=== PATIENT | female | born 1975 | race Caucasian/White ===

== ENCOUNTER 2017-10-01 20:16 | Emergency (ER) | payer OTHER ==
[~2017-10-01] VITALS: Ht 175.3 cm; Wt 149.2 kg
[~2017-10-01 20:16] MED LIST: AMLODIPINE BESYL5 MG PO; BENTYL20 MG PO; BUPROPION HCL150 M2 PO; CIPRO250 MG PO; ESCITALOPRAM OX20 MG PO; IBUPROFEN400 MG PO; INDERAL40 MG PO; LEVOTHYROXINE25 MCG PO; METFORMIN HCL500 MG PO; TOPIRAMATE50 MG PO; ZOFRAN ODT4 MG PO
[2017-10-01 23:59] LABS: APPEARANCE SL.HAZY ((CLEAR)); BILIRUBIN NEGATIVE; BLOOD MODERATE; COLOR YELLOW ((YELLOW)); GLUCOSE (STRIP) NEGATIVE; KETONES NEGATIVE; LEUKOCYTES MODERATE; NITRITE NEGATIVE; PROTEIN (STRIP) 30; SPECIFIC GRAVITY 1.016 (1.000-1.030); UROBILINOGEN 0.2 MG/DL (0.2-1.0)
[2017-10-02 00:10] LABS: BACTERIA 2+ /HPF; EPITHELIAL CELLS 2+ /HPF; MUCUS 2+ /LPF; RED BLOOD CELLS 0-5 /HPF (0-5); WHITE BLOOD CELLS 40-50 /HPF (0-5)
[2017-10-02] MEDS ORDERED: NAPROSYN500 MG PO (01:49)
[2017-10-02] MEDS ORDERED: FIORICET 50-301 EAC1 PO (01:49)
[2017-10-02] MEDS ORDERED: REGLAN10 MG PO (01:49)
[2017-10-02 02:04] VITALS: BP 127/58
== END 2017-10-02 02:05 | disposition home or self-care (01) ==
LOC: EME 20:16
PROVIDERS: Physician Assistant
DX: R51 Headache (principal); E11.22 Type 2 diabetes mellitus with diabetic chronic kidney disease; I12.9 Hypertensive chronic kidney disease with stage 1 through stage 4 chronic kidney disease, or unspecified chronic kidney disease; N18.3 Chronic kidney disease, stage 3 (moderate); Z79.84 Long term (current) use of oral hypoglycemic drugs; F41.9 Anxiety disorder, unspecified; F32.9 Major depressive disorder, single episode, unspecified
CPT/HCPCS: 81003; 99281; 99284; J1100; J1200; J1885; J2765; J7030